=== PATIENT | female | born 1940 | race Caucasian/White ===

== ENCOUNTER → 2017-08-04 | Outpatient (CLI) | payer MEDICARE ==
[~2017-08-04] MED LIST: BENZ.5 PO; HALO1 PO; LISI10 PO; THYR60 PO
[2017-08-04 15:33] LABS: Source, Urine Clean Catch
[2017-08-04 17:39] LABS: Bilirubin, Urine Neg (Neg); Blood, Urine 1+ (Neg); Glucose Qualitative, Urine Neg (Neg); Ketones, Urine Neg (Neg); Leukocyte Esterase, Urine 2+ (Neg); Nitrite, Urine Neg (Neg); Protein, Urine Neg (Neg); Urobilinogen, Urine NORM (Normal)
[2017-08-04 17:49] LABS: Appearance, Urine Clear (Clear); Color, Urine Yellow (P-Yellow)
[2017-08-04 17:50] LABS: Red Blood Cells, Urine 0-2 /hpf (0-2); Squamous Epithelial Cells Not Seen /hpf (Few)
[2017-08-04 17:51] LABS: Bacteria Few /hpf
== END | disposition home or self-care (01) ==
LOC: LAB SHORT 15:00 → LAB 15:00 → LAB FUT 07-28 11:25
PROVIDERS: Obstetrics & Gynecology Female Pelvic Medicine and Reconstructive Surgery
DX: N39.0 Urinary tract infection, site not specified (principal)
CPT/HCPCS: 81001; 87086

== ENCOUNTER → 2018-04-09 | Outpatient (CLI) | payer MEDICARE ==
[2018-04-09 10:14] LABS: BASOPHILS ABSOLUTE AUTO 0.02 K/mm3 (0.00-0.23); BASOPHILS PERCENT AUTO 0 % (0-2); EOSINOPHILS ABSOLUTE AUTO 0.02 K/mm3 (0.00-0.68); EOSINOPHILS PERCENT AUTO 0 % (0-6); Hematocrit 40.5 % (33.0-51.0); Hemoglobin 14.3 g/dL (11.5-16.0); IMMATURE GRAN ABSOLUTE AUTO 0.04 K/mm3 (0.00-0.10); IMMATURE GRAN PERCENT AUTO 1 % (0-1); LYMPHOCYTES ABSOLUTE AUTO 0.73 K/mm3 (0.84-5.20); LYMPHOCYTES PERCENT AUTO 9 % (21-46); MONOCYTES ABSOLUTE AUTO 0.57 K/mm3 (0.16-1.47); MONOCYTES PERCENT AUTO 7 % (4-13); Mean Corpuscular HGB 32.1 pg (26.0-34.0); Mean Corpuscular HGB Conc 35.3 g/dL (31.5-36.5); Mean Corpuscular Volume 91 fL (80-100); Mean Platelet Volume 9.3 fL (9.1-12.4); NEUTROPHILS ABSOLUTE AUTO 6.88 K/mm3 (1.96-9.15); NEUTROPHILS PERCENT AUTO 83 % (41-73); Platelet Count 214 K/mm3 (150-400); RDW Coefficient Variation 13.1 % (11.7-14.2); Red Blood Cell Count 4.46 M/mm3 (3.80-5.20); White Blood Cell Count 8.26 K/mm3 (4.00-11.30)
[2018-04-09 10:31] LABS: Alanine Aminotransfer (ALT/SGP 29 U/L (12-78); Albumin, Blood 4.3 g/dL (3.4-5.0); Albumin/Globulin Ratio 1.3 (0.8-1.8); Alk Phos 87 U/L (40-126); Anion Gap 6 mmol/L (6-16); Aspartate Aminotrans (AST/SGOT 22 U/L (12-37); Bilirubin, Total 0.8 mg/dL (0.1-1.0); Blood Urea Nitrogen 18 mg/dL (8-24); CO2, Blood 27 mmol/L (21-32); Chloride, Blood 96 mmol/L (98-108); Creatinine, Blood 0.72 mg/dL (0.40-1.00); Globulin, Blood 3.3 g/dL (2.2-4.0); Glomerular Filtration Rate >60 (60-); Glucose, Blood 79 mg/dL (70-99); Potassium, Blood 4.8 mmol/L (3.5-5.5); Sodium, Blood 129 mmol/L (136-145); Thyroid Stimulating Hormone 3.026 uIU/mL (0.360-4.800); Total Protein, Blood 7.6 g/dL (6.4-8.2)
[2018-04-09 10:34] LABS: Troponin I <0.017 ng/mL (0.000-0.040)
== END | disposition home or self-care (01) ==
LOC: LAB EV 10:02 → LAB SHORT 10:02
PROVIDERS: Physician Assistant
DX: R53.83 Other fatigue (principal); R55 Syncope and collapse
CPT/HCPCS: 80053; 84443; 84484; 85025

== ENCOUNTER → 2018-07-08 | Outpatient (CLI) | payer MEDICARE | END | disposition home or self-care (01) | LOC: LAB SHORT 13:47 → LAB EV 13:47 | DX: N39.0 Urinary tract infection, site not specified (principal) | CPT/HCPCS: 87077; 87086; 87186 ==

== ENCOUNTER → 2018-07-19 | Outpatient (CLI) | payer MEDICARE | END | disposition home or self-care (01) | LOC: LAB SHORT 12:46 → LAB 12:46 | DX: N39.0 Urinary tract infection, site not specified (principal) | CPT/HCPCS: 87086; 87147 ==

== ENCOUNTER → 2018-09-12 | Outpatient (CLI) | payer MEDICARE | END | disposition home or self-care (01) | LOC: LAB SHORT 08:27 → PLD 08:27 | DX: D22.62 Melanocytic nevi of left upper limb, including shoulder (principal) | CPT/HCPCS: 88305 ==

== ENCOUNTER → 2018-12-14 | Outpatient (CLI) | payer MEDICARE | END | disposition home or self-care (01) | LOC: LAB SHORT 16:52 → LAB 16:52 | DX: N39.0 Urinary tract infection, site not specified (principal) | CPT/HCPCS: 87077; 87086; 87186 ==

== ENCOUNTER → 2019-01-01 | Outpatient (CLI) | payer MEDICARE ==
[~2019-01-01] MED LIST changes: +ALOCANE EMERGEN75 ML TOP; +Percocet 5-3251 EACH PO
[2019-01-01 15:16] LABS: Appearance, Urine Clear (Clear); Bilirubin, Urine Neg (Neg); Blood, Urine Neg (Neg); Color, Urine Yellow (P-Yellow); Glucose Qualitative, Urine Neg (Neg); Ketones, Urine Neg (Neg); Leukocyte Esterase, Urine Neg (Neg); Nitrite, Urine Neg (Neg); Protein, Urine Neg (Neg); Urobilinogen, Urine NORM (Normal)
== END | disposition home or self-care (01) ==
LOC: LAB 13:54 → LAB SHORT 13:54
PROVIDERS: Nurse Practitioner Family
DX: N39.0 Urinary tract infection, site not specified (principal)
CPT/HCPCS: 81003

== ENCOUNTER 2019-01-26 20:11 | Emergency (ER) | payer MEDICARE ==
[~2019-01-26] VITALS: Ht 165.1 cm; Wt 70.3 kg
[~2019-01-26 20:11] MED LIST changes: -ALOCANE EMERGEN75 ML TOP; -Percocet 5-3251 EACH PO
[2019-01-26] MEDS ORDERED: ALOCANE EMERGEN75 ML TOP (21:24)
[2019-01-26] MEDS ORDERED: Percocet 5-3251 EACH PO (21:25)
== END 2019-01-26 21:36 | disposition home or self-care (01) ==
LOC: ER 20:11
DX: T21.12XA Burn of first degree of abdominal wall, initial encounter (principal); T24.119A Burn of first degree of unspecified thigh, initial encounter; T31.0 Burns involving less than 10% of body surface; X10.0XXA Contact with hot drinks, initial encounter; Z79.899 Other long term (current) drug therapy; I10 Essential (primary) hypertension; E03.9 Hypothyroidism, unspecified
CPT/HCPCS: 16000; 99283-25; A9270

== ENCOUNTER → 2019-02-03 | Outpatient (CLI) | payer MEDICARE ==
[~2019-02-03] MED LIST changes: +ALOCANE EMERGEN75 ML TOP; +Percocet 5-3251 EACH PO
== END | disposition home or self-care (01) ==
LOC: LAB SHORT 13:37 → LAB EV 13:37
DX: N39.0 Urinary tract infection, site not specified (principal)
CPT/HCPCS: 87077; 87086; 87186

== ENCOUNTER → 2019-11-01 | Outpatient (CLI) | payer MEDICARE ==
[2019-11-01 14:44] LABS: Source, Urine Clean Catch
[2019-11-01 17:09] LABS: Bilirubin, Urine Neg (Neg); Blood, Urine 2+ (Neg); Glucose Qualitative, Urine Neg (Neg); Ketones, Urine Neg (Neg); Leukocyte Esterase, Urine 2+ (Neg); Nitrite, Urine Neg (Neg); Protein, Urine 1+ (Neg); Specific Gravity, Urine 1.015 (1.003-1.022); Urobilinogen, Urine NORM (Normal)
[2019-11-01 17:18] LABS: Appearance, Urine Hazy (Clear); Color, Urine Yellow (P-Yellow)
[2019-11-01 17:21] LABS: White Blood Cells, Urine TNTC /hpf (0-5)
[2019-11-01 17:22] LABS: Bacteria Few /hpf; Squamous Epithelial Cells Few /hpf (Few); Transitional Epithelial Cells Rare /hpf (0-Rare)
== END | disposition home or self-care (01) ==
LOC: LAB 14:44 → LAB SHORT 14:44
PROVIDERS: Nurse Practitioner Family
DX: R30.9 Painful micturition, unspecified (principal)
CPT/HCPCS: 81001; 87086

== ENCOUNTER → 2020-05-29 | Outpatient (CLI) | payer MEDICARE | END | disposition home or self-care (01) | LOC: LAB EV 13:41 → LAB SHORT 13:41 | DX: R30.0 Dysuria (principal) | CPT/HCPCS: 87077; 87086; 87186 ==

== ENCOUNTER → 2021-01-17 | Outpatient (CLI) | payer MEDICARE | END | disposition home or self-care (01) | LOC: LAB SHORT 13:49 → LAB 13:49 | DX: N39.0 Urinary tract infection, site not specified (principal) | CPT/HCPCS: 87086 ==

== ENCOUNTER → 2021-02-11 | Outpatient (CLI) | payer MEDICARE | LOC: LAB SHORT 11:10 → LAB 11:10 | DX: R30.0 Dysuria (principal) | CPT/HCPCS: 87086 ==

== ENCOUNTER → 2021-08-12 | Outpatient (CLI) | payer MEDICARE | END | disposition home or self-care (01) | LOC: LAB SHORT 14:32 → LAB 14:32 | DX: N39.0 Urinary tract infection, site not specified (principal) | CPT/HCPCS: 87086 ==

== ENCOUNTER → 2022-01-12 | Outpatient (CLI) | payer MEDICARE | LOC: LAB 12:48 → LAB SHORT 12:48 | DX: N39.0 Urinary tract infection, site not specified (principal) | CPT/HCPCS: 87077; 87086; 87186 ==

== ENCOUNTER → 2022-03-03 | Outpatient (CLI) | payer MEDICARE | END | disposition home or self-care (01) | LOC: LAB SHORT 11:30 → LAB 11:30 | DX: N39.0 Urinary tract infection, site not specified (principal) | CPT/HCPCS: 87077; 87086; 87186 ==

== ENCOUNTER → 2022-03-18 | Outpatient (CLI) | payer MEDICARE ==
[2022-03-18 10:50] LABS: Source, Urine Clean Catch
[2022-03-18 12:52] LABS: Bilirubin, Urine Neg (Neg); Blood, Urine 1+ (Neg); Glucose Qualitative, Urine Neg (Neg); Ketones, Urine Neg (Neg); Leukocyte Esterase, Urine 2+ (Neg); Nitrite, Urine Neg (Neg); Protein, Urine 1+ (Neg); Urobilinogen, Urine NORM (Normal)
[2022-03-18 13:20] LABS: Appearance, Urine Hazy (Clear); Color, Urine Yellow (P-Yellow)
[2022-03-18 13:23] LABS: Red Blood Cells, Urine 0-2 /hpf (0-2); White Blood Cells, Urine 25-50 /hpf (0-5)
[2022-03-18 13:24] LABS: Bacteria Few /hpf; Squamous Epithelial Cells Rare /hpf (Few)
== END | disposition home or self-care (01) ==
LOC: LAB 10:49 → LAB SHORT 10:49
PROVIDERS: Nurse Practitioner Family
DX: R30.9 Painful micturition, unspecified (principal)
CPT/HCPCS: 81001; 87077; 87086; 87186

== ENCOUNTER → 2022-12-14 | Outpatient (CLI) | payer MEDICARE | END | disposition home or self-care (01) | LOC: LAB 13:27 → LAB SHORT 13:27 | DX: N39.0 Urinary tract infection, site not specified (principal) | CPT/HCPCS: 87077; 87086; 87186 ==

== ENCOUNTER → 2023-02-17 | Outpatient (CLI) | payer MEDICARE | LOC: LAB 15:23 → LAB SHORT 15:23 | DX: N39.0 Urinary tract infection, site not specified (principal) | CPT/HCPCS: 87077; 87086; 87186 ==

== ENCOUNTER → 2023-04-19 | Outpatient (CLI) | payer MEDICARE | LOC: LAB SHORT 17:11 → LAB 17:11 | DX: N30.00 Acute cystitis without hematuria (principal) | CPT/HCPCS: 87077; 87086; 87186 ==

== ENCOUNTER 2025-04-15 18:36 | Inpatient (IN) | payer MEDICARE ==
[~2025-04-15] VITALS: Ht 170.2 cm; Wt 71.5 kg
[2025-04-15] MEDS ORDERED: METOPROLOL SUCC25 MG PO (18:48)
[2025-04-15] MEDS ORDERED: ELIQUIS5 M2 PO (18:48)
[2025-04-15] MEDS ORDERED: AMLO5 PO (18:49)
[2025-04-15] MEDS ORDERED: BENAZEPRIL HCL40 M1 PO (18:49)
[2025-04-15] MEDS ORDERED: HYDCHL12.5 PO (19:11)
[2025-04-15] MEDS ORDERED: SPIR25 PO (19:12)
[2025-04-15] MEDS ORDERED: VALACYCLOVIR1000 MG (19:12)
[2025-04-15] MEDS ORDERED: EUTHYROX88 MCG PO (19:12)
[2025-04-15] MEDS ORDERED: Seroquel Xr50 MG PO (19:13)
[2025-04-15] MEDS ORDERED: ZYRTEC10 M2 PO (19:13)
[2025-04-15 19:14] LABS: Source, Urine Straight Cath
[2025-04-15] MEDS ORDERED: Vitamin D1000 UNI1 PO (19:14)
[2025-04-15 19:18] LABS: BASOPHILS ABSOLUTE AUTO 0.01 K/mm3 (0.00-0.23); BASOPHILS PERCENT AUTO 0 % (0-2); EOSINOPHILS ABSOLUTE AUTO 0.00 K/mm3 (0.00-0.68); EOSINOPHILS PERCENT AUTO 0 % (0-6); Hematocrit 29.5 % (33.0-51.0); Hemoglobin 10.9 g/dL (11.5-16.0); IMMATURE GRAN ABSOLUTE AUTO 0.03 K/mm3 (0.00-0.10); IMMATURE GRAN PERCENT AUTO 0 % (0-1); LYMPHOCYTES ABSOLUTE AUTO 0.19 K/mm3 (0.84-5.20); LYMPHOCYTES PERCENT AUTO 2 % (21-46); MONOCYTES ABSOLUTE AUTO 0.72 K/mm3 (0.16-1.47); MONOCYTES PERCENT AUTO 8 % (4-13); Mean Corpuscular HGB Conc 36.9 g/dL (31.5-36.5); Mean Corpuscular Volume 86 fL (80-100); NEUTROPHILS ABSOLUTE AUTO 8.16 K/mm3 (1.96-9.15); NEUTROPHILS PERCENT AUTO 90 % (41-73); NRBC ABSOLUTE 0.00 K/mm3 (0.00-0.02); NRBC Auto 0.0 /100 WBC (0.0-0.2); Platelet Count 135 K/mm3 (150-400); RDW Coefficient Variation 13.0 % (11.7-14.2); RDW Standard Deviation 41.0 fL (35.1-46.3)
[2025-04-15 19:21] LABS: Bilirubin, Urine Neg (Neg); Color, Urine Yellow (P-Yellow); Glucose Qualitative, Urine Neg (Neg); Ketones, Urine Neg (Neg); Leukocyte Esterase, Urine 3+ (Neg); Protein, Urine 3+ (Neg); Specific Gravity, Urine 1.015 (1.003-1.022); Urobilinogen, Urine NORM (Normal)
[2025-04-15 19:29] LABS: White Blood Cells, Urine TNTC /hpf (0-5)
[2025-04-15 19:34] LABS: U Amphetamine Screen Not Detected; U Barbiturate Screen Not Detected; U Benzodiazapine Screen Not Detected; U Buprenorphine Screen Not Detected; U Cannabinoids Screen Not Detected; U Cocaine Screen Not Detected; U Methadone Screen Not Detected; U Methamphetamine Screen Not Detected; U Opiates Screen Not Detected; U Oxycodone Screen Not Detected; U Phencyclidine Screen Not Detected
[2025-04-15] MEDS ORDERED: CefTRIAXone Sodium 1,000 MG in NS 100 ML IV ONE (19:35)
[2025-04-15 19:58] LABS: Alanine Aminotransfer (ALT/SGP 46 U/L (12-78); Albumin, Blood 2.8 g/dL (3.4-5.0); Albumin/Globulin Ratio 0.7 (0.8-1.8); Anion Gap 13 mmol/L (3-11); Aspartate Aminotrans (AST/SGOT 57 U/L (12-37); Bilirubin, Total 1.0 mg/dL (0.1-1.0); Blood Urea Nitrogen 64 mg/dL (8-24); CO2, Blood 22 mmol/L (21-32); Calcium, Blood 10.8 mg/dL (8.5-10.1); Chloride, Blood 97 mmol/L (98-108); Creatinine, Blood 1.54 mg/dL (0.40-1.00); Ethanol (Alcohol), Blood, Med <3 mg/dL; Globulin, Blood 3.8 g/dL (2.2-4.0); Glucose, Blood 94 mg/dL (70-99); Potassium, Blood 3.1 mmol/L (3.5-5.5); Sodium, Blood 129 mmol/L (136-145); Total Protein, Blood 6.6 g/dL (6.4-8.2)
[2025-04-15 21:56] LABS: IMMATURE RETIC FRACTION 12.20 % (2.3-16.0); RETIC HGB EQUIVALENT 27.20 pg (28.20-36.60); RETICULOCYTE ABSOLUTE 0.0671 M/mm3 (0.0200-0.1100); RETICULOCYTE COUNT PERCENT 1.94 % (0.50-2.50)
[2025-04-15] MEDS ORDERED: NS 1,000 ML IV SCH (22:00)
[2025-04-15 22:41] LABS: Ferritin, Serum 439 ng/mL (8-252); Magnesium, Blood 2.4 mg/dL (1.6-2.4); Total Iron Binding Capacity 231 ug/dL (250-450)
[2025-04-15 23:03] VITALS: BP 152/76
[2025-04-16 03:11] VITALS: BP 141/60
--- NOTE | 2025-04-16 04:21 | NUR ---
PT ADMITTED FOR TOXIC METABOLIC ENCEPHALOPATHY. PATIENT ALERT AND ORIENTD TO SELF AND CONFUSED. WHEN PATIENT WAS ASKED WAS MONTH IT WAS SHE REPLIED "19". PATIENT DOES NOT KNOW YEAR OR THE SITUATION. PATIENT IS ON ROOM AIR SATING WELL-NO SOB. PATIENT ON TELE- A FLUTTER WITH PACER. PATIENT IS ON NS AT 150 ML/H. PATIENT IS INCONTINENT OF BLADDER- BRIEF IN PLACE AND CHANGED NEEDED. PATIENT IS ABLE TO TURN SELF IN BED. MED REC/ADMISSION QUESTIONS COULD NOT BE COMPLETED DUE TO PATIENTS COGNITION. BED IS IN LOW POSITION WITH WHEELS LOCKED. BED ALAR ON, CALL LIGHT WITHIN REACH.
[2025-04-16 04:36] LABS: BASOPHILS ABSOLUTE AUTO 0.02 K/mm3 (0.00-0.23); BASOPHILS PERCENT AUTO 0 % (0-2); EOSINOPHILS ABSOLUTE AUTO 0.00 K/mm3 (0.00-0.68); EOSINOPHILS PERCENT AUTO 0 % (0-6); Hematocrit 29.3 % (33.0-51.0); Hemoglobin 10.4 g/dL (11.5-16.0); IMMATURE GRAN ABSOLUTE AUTO 0.04 K/mm3 (0.00-0.10); IMMATURE GRAN PERCENT AUTO 1 % (0-1); LYMPHOCYTES ABSOLUTE AUTO 0.18 K/mm3 (0.84-5.20); LYMPHOCYTES PERCENT AUTO 2 % (21-46); MONOCYTES ABSOLUTE AUTO 0.62 K/mm3 (0.16-1.47); MONOCYTES PERCENT AUTO 8 % (4-13); Mean Corpuscular HGB Conc 35.5 g/dL (31.5-36.5); Mean Corpuscular Volume 88 fL (80-100); NEUTROPHILS ABSOLUTE AUTO 7.04 K/mm3 (1.96-9.15); NEUTROPHILS PERCENT AUTO 89 % (41-73); NRBC ABSOLUTE 0.00 K/mm3 (0.00-0.02); NRBC Auto 0.0 /100 WBC (0.0-0.2); Platelet Count 135 K/mm3 (150-400); RDW Coefficient Variation 12.9 % (11.7-14.2); RDW Standard Deviation 41.7 fL (35.1-46.3)
[2025-04-16 05:14] LABS: Alanine Aminotransfer (ALT/SGP 40.0 U/L (12-78); Albumin, Blood 2.5 g/dL (3.4-5.0); Albumin/Globulin Ratio 0.7 (0.8-1.8); Anion Gap 10.0 mmol/L (3-11); Aspartate Aminotrans (AST/SGOT 40.0 U/L (12-37); Bilirubin, Total 0.8 mg/dL (0.1-1.0); Blood Urea Nitrogen 54.0 mg/dL (8-24); CO2, Blood 23.0 mmol/L (21-32); Calcium, Blood 10.2 mg/dL (8.5-10.1); Chloride, Blood 104.0 mmol/L (98-108); Creatinine, Blood 1.28 mg/dL (0.40-1.00); Globulin, Blood 3.5 g/dL (2.2-4.0); Glucose, Blood 91.0 mg/dL (70-99); Potassium, Blood 3.1 mmol/L (3.5-5.5); Sodium, Blood 134.0 mmol/L (136-145); Total Protein, Blood 6.0 g/dL (6.4-8.2)
[2025-04-16 07:43] VITALS: BP 134/80
[2025-04-16] MEDS ORDERED: Lactobacil 2-S.Thermo-Bifido 1 1 Cap PO SCH (09:00)
[2025-04-16] MEDS ORDERED: Potassium Chl 20MEQ/Water100ML 100 ML IV STA (10:11)
[2025-04-16] MEDS ORDERED: NS 250 ML IV PRN (10:25)
[2025-04-16 10:52] VITALS: BP 152/70
[2025-04-16] MEDS ORDERED: FLUT.05NI (11:00)
[2025-04-16] MEDS ORDERED: NS 1,000 ML IV SCH (11:45)
[2025-04-16 15:19] VITALS: BP 152/62
--- NOTE | 2025-04-16 15:38 | NUR ---
SPOKE TO PATIENTS SON NANCY HER OLDEST THIS MORNING. HE IS HER POA, AND STATED PATIENT HAD PREVIOUSLY BEEN A DNR, PALLIATIVE CARE CONSULTED TO HELP IN ADVANCE CARE PLANNING. NANCY WAS GIVEN OUR UNIT CLERKS EMAIL TO SEND PAPERWORK FOR CHART. NANYC ALSO GAVE PERMISSION TO NURSING STAFF TO UPDATE KRISTYNER IN LAW ELYSSA HER NAME AND NUMBER ARE ON THE BOARD AND IN CHART AND SHE WILL KEEP THE FAMILY UPDATED ON PLAN OF CARE. DAUGHTER IN LAW ALSO WANTED TO CLARIFY THAT PT HAD A SUDDEN CHANGE IN MENTATION, SAME DAY CONFUSION NOTICED. PT HAD BEEN COMPLETELY WITH IT THE DAY PRIOR TO HER NEIGHBOR GOING TO CHECK ON HER PER HER SONS REQUEST HE COULDNT GET AHOLD OF HER. PT HAS FOUR SONS, NANCY IS POA BUT ELYSSA WILL BE PERSON TO NOTIFY PER NANCY'S REQUEST.
[2025-04-16] MEDS ORDERED: Vitamin B Comple1 EA PO (16:13)
--- NOTE | 2025-04-16 17:54 | NUR ---
WAS NOTIFIED BY PROFESSIONAL SECURITY OFFICER BREANA THAT PATIENT CONVERTED FROM SINUS RHYTHM A-PACED TO A-FLUTTER AND HAS BEEN SUSTAINING IN THE 80'S SINCE 1707. PRIOR HAD A COUPLE RUNS OF F-FLUTTER LASTING A COUPLE SECONDS BUT NOT SUSTAINING. NOTIFIED [facility]IA EUGENIA GREEN THIS EVENING DR. CAMPBELL DID NOT ANSWER. ORDERED TO RESTART HOME ELIQUIS.
--- NOTE | 2025-04-16 18:03 | NUR ---
SUMMARY PT A/OX1 THIS AM RESPONDING WITH PRESSURED SPEECH IN ONE WORD PHRASES. CALLED FRIEND/NEIGHBOR JORGE LUIS WHO GAVE ME HER SON NANCY'S PHONE NUMBER. NUMBERS ARE UP ON THE BOARD IN ROOM AND IN CHART. PALLITAIVE CARE CONSULTED TO HELP WITH ADVANCE CARE PLANNING. HER SON NANCY CALLED TO GET AN UPDATE I COULDNT GET THROUGH TO NICK WHO IS ON FACESHEET. UPDATE GIVEN TO NANCY WHO CALLED BACK REQUESTING IF WE COULD UPDATE ELYSSA WHO IS DAUGHTER IN LAW WHO IS TO SON SENTHIL. PER ELYSSA DIAZT IS POA, EMAIL GIVEN TO NANCY TO SEND PAPERWORK OF POA. ELYSSA WAS UPDATED AND WILL KEEP REST OF FAMILY UPDATED. NANCY STATED HE FEELS MORE COMFORTABLE SINCE ELYSSA IS A NURSE AND HER SENTHIL IS A RESP THERAPIST AND UNDERSTAND THE "MEDICAL LINGO". PT CONTINUES TO BE CONFUSED THIS EVENING, STILL A/OX1 BUT IS STARTINIG TO CARRY ON A CONVERSATION WITH SENTENCES. NO ACUTE NEURO SYMPTOM CHANGES THIS SHIFT. Q8 NEURO CHECKS. IV FLUIDS INFUSING AT 75 ML/HR. PT/OT DEFERRED UNTIL TOMORROW DUE TO MENTAL STATUS. ALL EXTREMITIES EQUAL IN STREGTH, PT NOT ATTEMPTING OOB BUT BED ALARM ON, NONSKID SOCKS ON. FALL PRECAUTIONS IN PLACE.
--- NOTE | 2025-04-16 19:06 | NUR ---
PALLIATIVE CARE VISIT: CONSULT RECEIVED FOR ADVANCED CARE PLANNING AND AD/POLST. REVIEWED MEDICAL RECORD, SPOKE TO PRIMARY RN PRIOR TO VISIT. AD ON FILE BUT WON'T PULL UP IN WINDOW. POLST ON FILE THROUGH POLST REGISTRY STATING DNR, LIMITED. PRIMARY RN PROVIDED OTHER CHILDRENS NAME AND CONTACT INFO. GLENN CRUZ REPORTED POA- [phone] SON [phone] MET WITH PT IN ROOM. PT IS CONFUSED, DID NOT KNOW HER OR WHERE SHE WAS AT. SHE WAS ABLE TO STATE HER NAME AND MONTH OF . PT UNABLE TO PARTICIPATE IN MEANINGFUL CONVERSATION. CALLED GLENN CRUZ, WHO IS REPORTEDLY PT POA. UPDATED HIM ON PT. DISCUSSED POLST FOUND ON FILE, EDUCATED ON CPR VS DNR MEASURES, RISKS VS BENEFITS. NANCY WANTS TO KEEP CODE STATUS A FULL CODE UNTIL HE HAS TIME TO TALK TO BROTHER SENTHIL AND PENNY BERGERON. PER NANCY GLENN ROMERO LISTED PERSON TO NOTIFY IS BIPOLAR AND DOES NOT TAKE HIS MEDICATIONS SO HE IS NOT A GOOD CONTACT AT THIS TIME. ATTEMPTED TO CALL [employer] TO SEE IF ADVANCE DIRECTIVE OR POA ON FILE. WAS NOT ABLE TO GET IN TOUCH IT WAS AFTER 5 PM.
[2025-04-16 19:53] VITALS: BP 143/67
[2025-04-16] MEDS ORDERED: CefTRIAXone Sodium 1,000 MG in NS 100 ML IV SCH (21:00)
[2025-04-16] MEDS ORDERED: CefTRIAXone Sodium 2,000 MG in NS 100 ML IV SCH (21:00)
[2025-04-16 23:22] VITALS: BP 143/59
--- NOTE | 2025-04-17 03:37 | NUR ---
SHIFT SUMMARY- A&Ox1. PLEASANT AND COOPERATIVE WITH CARE. DOES NOT USE THE CALL LIGHT. BED ALARMS ON DUE TO FALL RISK. VSS. ON TELEMETRY AFLUTTER 83. BREATHING EVEN AND UNLABORED ON INCONTINENT OF BLADDER DUE TO CURRENT ILLNESS. PATIENT HAS NOT HAD A BM WHILE ADMITTED. PATIENT IS ON BEDREST BUT WAS ABLE TO COOPERATE TO USE THE BEDSIDE COMMODE WITH 1-2 PERSON ASSIST. MEDS WHOLE IN APPLESAUCE. BED IN LOWEST POSITION, CALL LIGHT WITHIN REACH, ALL NEEDS MET. REPORT TO ONCOMING NURSE.
[2025-04-17 04:20] VITALS: BP 148/73
[2025-04-17 04:46] LABS: BASOPHILS ABSOLUTE AUTO 0.02 K/mm3 (0.00-0.23); BASOPHILS PERCENT AUTO 0 % (0-2); EOSINOPHILS ABSOLUTE AUTO 0.01 K/mm3 (0.00-0.68); EOSINOPHILS PERCENT AUTO 0 % (0-6); Hematocrit 30.3 % (33.0-51.0); Hemoglobin 10.7 g/dL (11.5-16.0); IMMATURE GRAN ABSOLUTE AUTO 0.11 K/mm3 (0.00-0.10); IMMATURE GRAN PERCENT AUTO 1 % (0-1); LYMPHOCYTES ABSOLUTE AUTO 0.39 K/mm3 (0.84-5.20); LYMPHOCYTES PERCENT AUTO 5 % (21-46); MONOCYTES ABSOLUTE AUTO 0.87 K/mm3 (0.16-1.47); MONOCYTES PERCENT AUTO 11 % (4-13); Mean Corpuscular HGB Conc 35.3 g/dL (31.5-36.5); Mean Corpuscular Volume 88 fL (80-100); NEUTROPHILS ABSOLUTE AUTO 6.49 K/mm3 (1.96-9.15); NEUTROPHILS PERCENT AUTO 82 % (41-73); NRBC ABSOLUTE 0.00 K/mm3 (0.00-0.02); NRBC Auto 0.0 /100 WBC (0.0-0.2); Platelet Count 157 K/mm3 (150-400); RDW Coefficient Variation 13.2 % (11.7-14.2); RDW Standard Deviation 42.5 fL (35.1-46.3)
[2025-04-17 05:08] LABS: Alanine Aminotransfer (ALT/SGP 33.0 U/L (12-78); Albumin, Blood 2.2 g/dL (3.4-5.0); Albumin/Globulin Ratio 0.6 (0.8-1.8); Anion Gap 8.0 mmol/L (3-11); Aspartate Aminotrans (AST/SGOT 24.0 U/L (12-37); Bilirubin, Total 0.5 mg/dL (0.1-1.0); Blood Urea Nitrogen 39.0 mg/dL (8-24); CO2, Blood 25.0 mmol/L (21-32); Calcium, Blood 10.2 mg/dL (8.5-10.1); Chloride, Blood 112.0 mmol/L (98-108); Creatinine, Blood 1.0 mg/dL (0.40-1.00); Globulin, Blood 3.7 g/dL (2.2-4.0); Glucose, Blood 122.0 mg/dL (70-99); Potassium, Blood 2.9 mmol/L (3.5-5.5); Sodium, Blood 142.0 mmol/L (136-145); Total Protein, Blood 5.9 g/dL (6.4-8.2)
[2025-04-17 07:29] VITALS: BP 148/65
[2025-04-17] MEDS ORDERED: Potassium Chloride 10 Meq Tablet SA PO SCH (09:00)
[2025-04-17] MEDS ORDERED: Potassium Chl 20MEQ/Water100ML 100 ML IV SCH (11:00)
[2025-04-17 11:26] VITALS: BP 131/78
[2025-04-17 15:17] VITALS: BP 144/70
--- NOTE | 2025-04-17 18:23 | NUR ---
SON CHADD CALLED FOR AN UPDATE, UPDATE GIVEN ON PT CONDITION AND PLAN OF CARE TODAY.
[2025-04-17 19:22] VITALS: BP 140/59
--- NOTE | 2025-04-17 19:44 | NUR ---
SUMMARY PT CONTINUES TO BE CONFUSED, WILL OCASIONALLY BE ALBE TO TELL ME HER NAME OTHER TIMES CANT, APPEARS APHASIC AT TIMES OR SELECTIVE IN HER RESPONSE TO COMMANDS. [facility] SCORE COMPLETED AND DR. CAMPBELL UPDATED, REPEAT CT HEAD COMPLETED. SON SENTHIL AND PENNY BERGERON UPDATED ON PLAN OF CARE AND THEY ARE ANXIOUS, REQUESTING DOC TO CALL FAMILY TOMORROW TO DISCUSS PLAN OF CARE PT MENTATION HAS NOT SHOWN IMPROVEMENT AFTER 24 HOURS. PT HAD POTASSIUM SUPPLEMENTED IV AND PO TODAY. FAIR APPETITE. NO BM THIS SHIFT. INCONTINENT OF URINE. PT/OT UNALBE TO EVALUATE DUE TO MENTATION.
[2025-04-17 23:29] VITALS: BP 160/73
[2025-04-18 03:24] VITALS: BP 157/67
--- NOTE | 2025-04-18 05:13 | NUR ---
SHIFT SUMMARY PT ALERT ORIENTED TO SELF ONLY. SHE WONT TELL YOU HER NAME BUT IF YOU ASK HER IF THATS HER NAME AND SHE SAYS YES. SHES BEEN VERY CONFUSED THIS SHIFT USING LOTS OF WORD SALAD. SHE WILL YELL AND SCREAM OUT WHEN YOU TRY TO CHANGE HER. MOST OF THE THINGS THAT SHES SAYING YOU CANT UNDERSTAND. I SAW ON HER HOME MEDS THAT SHE USED TO TAKE SEROQUEL AT HOME. I WILL PASS ON TO AM SHIFT TO ASK MD IF WE CAN GET THAT MED BACK FOR HER. IT SEEMS THAT SHE IS HAVING VISUAL HALLUCINATIONS AND SHE GETS VERY SCARED. REMAINS ON AFIB AT 79 WITH SOME VPACED BEATS. SHE HAD HER PACER PLACED ABOUT 1 MONTH AGO. SHE IS INC OF URINE AND WEARS BRIEFS. REMAINS ON ROCEPHIN ORDERED FOR A UTI. REMAINS ON NS AT 75. SHES BEEN AWAKE FOR ME THE LAST 2 NIGHTS. LYING IN BED WITH HER CALL LIGHT IN REACH
[2025-04-18 07:28] VITALS: BP 168/68
[2025-04-18 11:28] VITALS: BP 160/70
--- NOTE | 2025-04-18 12:55 | NUR ---
NOTE FRIEND WAS AT BEDSIDE THIS AM, REPORTED PT HAS HX OF NOMAN, WAS WONDERING IF THIS IS PSYCH RELATED, PT LAUGHS AT TIMES. FRIEND IN ROOM REPORTED "PT IS VERY ORIENTED AT HOME." REPORTED TO DR. CAMPBELL. REPORTED "THIS IS NOT PSYCH RELATED, PT IS CONFUSED DUE TO UTI." THIS RN NOTICED PT TAKES SEROQUEL AT NIGHT, THIS RN NOTICED PT NOT TAKING AT HOSPITAL. DR. CAMPBELL ORDERED SEOQUEL.
[2025-04-18 14:35] VITALS: BP 162/74
--- NOTE | 2025-04-18 15:36 | NUR ---
NOTE PHYSICAL THERAPY CANCELLED ORDER DUE TO PT NOT DIRECTABLE, "UNABLE TO WORK W PT." PT AGITATED, HX OF FALLS, TRYING TO GET OUT OF BED, NOT REDIRECTABLE, YELLING AT STAFF, USING NOT APPROPRIATE LANGUAGE. BED ALARM ON. FUNERAL HOME LOCATION MANAGER ANSWERED BED ALARM, REDIRECTING PT, PT NOT DIRECTABLE AND OFFERED BATHROOM. AIRFIELD SERVICES OFFICER HAD JUST CHANGED ATTENDS DUE TO INCONTINENCE. FUNERAL HOME LOCATION MANAGER AND THIS RN ATTEMPTED TO GET PT TO BSC, PT REALLY UNSTABLE ON FEET. PT CONT TO THRASH IN BED, AND FLAILING ARMS AND ATTEMPTING TO PULL LINES. PT GIVEN FIGIT VEST. THIS RN CALLED DR. CAMPBELL TO NOTIFY INCREASE IN AGITATION. DR. CAMPBELL REPORTED "NOT ORDERING SEROQUAL PRN DUE TO PT BEING LETHARGIC ON ADMISSION. GET PT A SITTER." REPORTED TO FUNERAL HOME LOCATION MANAGER PT NEEDS SITTER, FUNERAL HOME LOCATION MANAGER REPORTED TO NURSING SUP AND ASSISTANT GENERAL MANAGER REPORTED USE CAMERA. CAMERA IN ROOM AND FUNERAL HOME LOCATION MANAGER CALLED FOR VIRTUAL CAMERA ACTIVATION, FUNERAL HOME LOCATION MANAGER APPLIED CECILLE DUE TO SAFETY RISK AND PT CONT TO TRY TO GET OUT OF BED AND BEING UNSTABLE AND NOT REDIRECTABLE ON FEET. PT BED IN LOWEST POSITION, VIRTUAL CAMERA INTERVENTION ADDED AND RESTRAINT MANAGEMENT, CALL LIGHT IN REACH. PT CONT TO FLING LEG OVER SIDE RAIL.
--- NOTE | 2025-04-18 17:13 | NUR ---
NOTE ATTEMPTED TO GET VIRTUAL CAMERA TO WORK, ATTEMPTED THROUGH 3 CAMERAS. VIRTUAL INSPECTOR MECHANICAL REPORTED ACCORDING TO RADHA RN THAT "CAN'T COMMUNICATE TO PT, CAN SOUND ALARMS." PT IN CECILLE FOR SAFETY. BED ALARM ON.
--- NOTE | 2025-04-18 17:24 | NUR ---
SHIFT SUMMARY PT TALKS IN SENTENCES BUT TALKS WITH WORD SALAD. HAS DIFFICULTY EXPRESSING WHAT SHE NEEDS. THIS RN ASKED PT HER NAME, PT SAYS OF COURSE THAT IS MY NAME. PT HAS INTERMITTENT LAUGHING OUT AT TIMES AND YELLS OUT AT TIMES. PT HAS VISUAL AND AUDIO HALLUCINATIONS AND VISUAL. PT REPORTS BEING ON A PLANE, WANTS OFF THE PLANE. PT INC OF URINE. ATTENDS IN PLACE. ATTENDS CHANGED PRN. PT ON BEDREST. PT 2 P ASSIST TO BSC. PT NOT REDIRECTABLE AND AGITATED. PT REPORTS "IM GETTING OUT OF THIS FUCKING PLACE." PT HAS CECILLE IN PLACE FOR FALL PRECAUTIONS, RESTAINT MANAGEMENT COMPLETE. PT ON TELE. PT IS VPACED. HX OF RECENT PACEMAKER PLACEMENT. PT HAS CONT FLUIDS INFUSING AT 75ML/HR. PT IN BED, BED IN LOWEST POSITION, CALL LIGHT IN REACH. PT MEDICATED ONCE PO WITH ZYPREXA FOR AGITATION.
[2025-04-18 19:50] VITALS: BP 175/94
[2025-04-18 23:42] VITALS: BP 173/78
[2025-04-19 03:25] VITALS: BP 151/89
[2025-04-19 05:14] LABS: Anion Gap 7.0 mmol/L (3-11); Blood Urea Nitrogen 22.0 mg/dL (8-24); CO2, Blood 27.0 mmol/L (21-32); Calcium, Blood 10.3 mg/dL (8.5-10.1); Chloride, Blood 110.0 mmol/L (98-108); Creatinine, Blood 0.74 mg/dL (0.40-1.00); Glucose, Blood 106.0 mg/dL (70-99); Magnesium, Blood 1.7 mg/dL (1.6-2.4); Potassium, Blood 3.0 mmol/L (3.5-5.5); Sodium, Blood 141.0 mmol/L (136-145)
--- NOTE | 2025-04-19 07:15 | NUR ---
SHIFT SUMMARY ALERT, ORIENTED TO SELF. AGITATED AT TIMES, PT DID NOT APPEAR TO SLEEP. ELEVATED BP, OTHER VSS ON RA. TELE IN PLACE, AFLUTTER. 2P ASSIST TO REPOSITION/TURN IN BED. Q2 CHECK/CHANGES COMPLETED. SAFETY PRECAUTIONS IN PLACE.
[2025-04-19 07:28] VITALS: BP 168/81
--- NOTE | 2025-04-19 08:14 | NUR ---
ASSUMPTION OF CARE: THIS RN ASSUMED CARE OF PATIENT. AWAKE DURING SHIFT CHANGE REPORT. LYING SUPINE IN BED c CECILLE IN PLACE. SEEMED TO BE CONVERSING c SOMEONE ON RIGHT SIDE OF BED, THOUGH NOBODY ELSE WAS IN ROOM. GRANDIOSE AND PARANDOID VISUAL AND AUDITORY HALLUCINATIONS. BREATHING EVEN AND UNLABORED c ROOM AIR. MOST RECENT TELE STRIP IN CHART INTERPRETED AFIB c V-PACED @ 81bpm. BED IN LOWEST POSITION. CALL LIGHT WITHIN REACH. ACUTE NEEDS MET.
--- NOTE | 2025-04-19 10:28 | NUR ---
SPOKE c PATIENT FAMILY MEMBER/FRIENDS WHO STATES PATIENT HAD A "PSYCHOTIC EPISODE" LIKE THIS ABOUT FIFTEEN YEARS AGO THAT REQUIRED HOSPITALIZATION. STATED IT STARTED WITH A STRESSFUL SITUATION AND ESCALATED TO INSOMNIA AND EVENTUALLY HOSPITALIZATION WITH A UTI. FAMILY REQUESTING A PSYCH CONSULT.
[2025-04-19 11:57] VITALS: BP 163/115
[2025-04-19] MEDS ORDERED: Haloperidol Lactate Inj. 5 MG/ML Injection IV PRN (13:35)
[2025-04-19 15:28] VITALS: BP 169/71
[2025-04-19] MEDS ORDERED: Mag Sulfate 1 GM/D5% 100ML 100 ML IV STA (15:54)
[2025-04-19] MEDS ORDERED: Potassium Chl 20MEQ/Water100ML 100 ML IV STA (16:05)
[2025-04-19 20:48] VITALS: BP 162/101
--- NOTE | 2025-04-19 20:53 | NUR ---
END OF SHIFT SUMMARY: ALERT. ORIENTED TO SELF, SOMETIMES, BUT OCCASIONALLY NOT. GRANDIOSE AND PARANOID VISUAL AND AUDITORY HALLUCINATIONS T/O ENTIRETY OF SHIFT, OFTEN NOTED TO BE CONVERSING WITH PEOPLE SHE BELIEVES TO BE IN ROOM. INSULTING STAFF, TELLING THEM THEY ARE STUPID. REPEATEDLY STATING THE REASON THINGS ARE HAPPENING IS BECAUSE SHE THE PERSON, BUT IS UNABLE TO SAY WHO THE PERSON IS. FIXATED ON BEING THE SMARTEST PERSON INT HE WORLD. THREW BEVERAGE AT PROVIDER TODAY. CONTINUES TO BE IN CECILLE VEST SECONDARY TO REPEATEDLY ATTEMPTING TO GET OUT OF BED AND ENDANGERING SELF. DOES NOT UTILIZE CALL LIGHT. INCONTINENT OF BOWEL AND BLADDER AT THIS TIME. REFUSED PO MEDS FOR THIS RN. SON ATTEMPTED TO ADMINISTER LATER, WHICH SHE ALSO REFUSED. TELE STRIP IN CHART REVIEWED AND INTERPRETED A-FIB, V-PACED @ 81bpm. FAMILY WONDERING IF MRI CAN BE DONE TO R/O STROKE; UNABLE TO OBTAIN RECORDS FROM RECENT PACEMAKER PLACEMENT D/T NOT KNOWING WHERE DONE. DR. CAMPBELL MAY BE ABLE TO REVIEW IN [place]. FAMILY FRIEND CONFIRMS PATIENT Hx PSYCH ISSUES, THOUGH SON DENIES THIS. CHART REVIEW SHOWS HAVING BEEN IN ED FOR HYPERMANIA ~10-15 YEARS AGO. FRIENDS STATE IT STARTED WITH EPISODE SUCH THIS: BEGAN WITH STRESS, INSOMNIA AND UTI. BREATHING EVEN AND UNLABORED c RA. TOLERATING PO INTAKE, BUT IS PARANOID AND APPREHENSIVE TO TAKE ANYTHING FROM ANYONE OTHER THAN HER SON. PSYCH CONSULT PLACED; DELEGATION REQUEST TO CHARGE TO SUBMIT. K+ AND MAG REPLACED IV. PRN IV HALDOL 2.5MG ADDED Q6H. UNABLE TO PARTICIPATE IN CARE TODAY SECONDARY TO AMS. BED IN LOWEST POSITION, CALL LIGHT WITHIN REACH, ALL NEEDS MET. REPORT TO ONCOMING NURSE.
[2025-04-20 00:23] VITALS: BP 164/95
[2025-04-20 04:22] VITALS: BP 157/66
--- NOTE | 2025-04-20 04:36 | NUR ---
PATIENT HAS NOT SLEPT AT ALL THIS ENTIRE SHIFT HOWEVER SHE HAS BECOME LESS AGITATED. INITIATED A HOT WATER PAD THING FOR HER NECK PAIN SHE TOLD ME SHE WANTED TO TRY SOMETHING BESIDES MEDICATION. PATIENT ATE AN UNCRUSTABLE, A PUDDING AND SOME MILK. PATIENT DOES CONTINUE TO ASK TO GET OUT OF BED BUT HAS BEEN MORE REDIRECTABLE TONIGHT. VITALS HAVE BEEN STABLE AND NO ACUTE EVENTS NOTED. BED IN LOW POSITION, BED ALARM INITIATED, POSESSIONS AND CALL LIGHT WITHIN REACH.
[2025-04-20 07:19] VITALS: BP 178/70
[2025-04-20 11:15] VITALS: BP 147/81
[2025-04-20] MEDS ORDERED: NS 1,000 ML IV SCH (11:25)
[2025-04-20 15:19] VITALS: BP 151/79
[2025-04-20 16:51] LABS: Anion Gap 8.0 mmol/L (3-11); Blood Urea Nitrogen 25.0 mg/dL (8-24); CO2, Blood 27.0 mmol/L (21-32); Calcium, Blood 10.4 mg/dL (8.5-10.1); Chloride, Blood 112.0 mmol/L (98-108); Creatinine, Blood 0.82 mg/dL (0.40-1.00); Glucose, Blood 105.0 mg/dL (70-99); Potassium, Blood 3.7 mmol/L (3.5-5.5); Sodium, Blood 143.0 mmol/L (136-145)
[2025-04-20 19:46] VITALS: BP 171/92
--- NOTE | 2025-04-20 20:09 | NUR ---
PT CONTINUED WITH CECILLE D/T LINE PULLING, THROWING THINGS, THREATENING STAFF, TRYING TO GET OOB. FAMILY EDUCATED. PT CONFUSED AND HALLUCINATING. ABLE TO FORM SENTENCES BUT SOME APHASIA REMAINS. CALL LIGHT IN REACH, BED IN LOW LOCKED POSITION.
[2025-04-21] VITALS (7 sets, daily range): BP systolic 137–177; BP diastolic 75–87
[2025-04-21 05:32] LABS: Anion Gap 7.0 mmol/L (3-11); Blood Urea Nitrogen 25.0 mg/dL (8-24); CO2, Blood 28.0 mmol/L (21-32); Calcium, Blood 11.1 mg/dL (8.5-10.1); Chloride, Blood 112.0 mmol/L (98-108); Creatinine, Blood 0.8 mg/dL (0.40-1.00); Glucose, Blood 108.0 mg/dL (70-99); Potassium, Blood 4.1 mmol/L (3.5-5.5); Sodium, Blood 143.0 mmol/L (136-145)
--- NOTE | 2025-04-21 19:54 | NUR ---
SHIFT SUMMARY PT MENTATION IMPROVING SLOWLY THROUGHOUT THE DAY, AND RESTRAINTS REMOVED D/T PT MORE REDIRECTABLE AND LESS IMPULSIVE. ORIENTED X 3 AT TIMES, PERSON, PLACE, AND SITUATION WITH PROMPTING. 2 PA TO BSC TO URINATE. BED ALARM ON, CALL LIGHT IN REACH.
[2025-04-22 04:24] VITALS: BP 166/66
[2025-04-22 05:02] LABS: Albumin, Blood 3.0 g/dL (3.4-5.0); Anion Gap 7 mmol/L (3-11); Blood Urea Nitrogen 32 mg/dL (8-24); CO2, Blood 26 mmol/L (21-32); Calcium, Blood 10.5 mg/dL (8.5-10.1); Chloride, Blood 116 mmol/L (98-108); Creatinine, Blood 0.82 mg/dL (0.40-1.00); Glucose, Blood 110 mg/dL (70-99); Phosphorus, Blood 2.6 mg/dL (2.5-4.9); Potassium, Blood 3.4 mmol/L (3.5-5.5); Sodium, Blood 146 mmol/L (136-145)
--- NOTE | 2025-04-22 06:47 | NUR ---
PT WAS ALERT TO SELF ONLY AT THE BEGINING OF ETH SHIFT. SHE HAD NOTED HALLUCINATIONS, WAS A MAX 2 PERSON ASSIST TO BSC AND UNSTEADY ON HER FEET. AT THE END OF JESSICA SHIFT PT WAS A&OX3, ANSWERING QUESTIONS APPROPRIATELY AND EATING WITH ASISSTANCE. SHE WAS STRONGER WITH TRANSFERS TO BSC. PT SLEPT T/O THIS SHIFT.
[2025-04-22 07:19] VITALS: BP 136/78
[2025-04-22 11:50] VITALS: BP 153/64
[2025-04-22] MEDS ORDERED: Dextran/Hypromellose/Glycerin 15 DROP/ML BTL BOTHEYES PRN (14:40)
[2025-04-22 15:48] VITALS: BP 134/72
--- NOTE | 2025-04-22 18:36 | NUR ---
SHIFT SUMMARY PT IS A/OX3-4, CONFUSION AND FORGETFUL AT TIMES. BEDREST AT THIS TIME R/T WEAKNESS. ON TELE RUNNING AFLUTTER IN THE 80'S. EVALUATED BY SPEECH THERAPY THIS AFTERNOON FOR REPORTED DYSPHAGIA. MEDICATIONS TOLERATED WHOLE IN YOGURT. EXPECTED BARIUM SWALLOW TOMORROW. PT IS PLEASANT AND COOPERATIVE WITH CARE AND CALLS APPROPRAITELY USING THE CALL LIGHT.
[2025-04-22 19:57] VITALS: BP 114/56
[2025-04-23 00:40] VITALS: BP 150/73
[2025-04-23 04:48] VITALS: BP 143/71
[2025-04-23 05:53] LABS: Albumin, Blood 2.9 g/dL (3.4-5.0); Anion Gap 6 mmol/L (3-11); Blood Urea Nitrogen 37 mg/dL (8-24); CO2, Blood 25 mmol/L (21-32); Calcium, Blood 10.9 mg/dL (8.5-10.1); Chloride, Blood 120 mmol/L (98-108); Creatinine, Blood 0.96 mg/dL (0.40-1.00); Glucose, Blood 120 mg/dL (70-99); Phosphorus, Blood 2.1 mg/dL (2.5-4.9); Potassium, Blood 3.9 mmol/L (3.5-5.5); Sodium, Blood 147 mmol/L (136-145)
--- NOTE | 2025-04-23 05:53 | NUR ---
SHIFT SUMMARY A&OX2-3 THIS MORNING, DECREASED FROM X4 YESTERDAY. OCCASIONALLY CONFUSED TO TIME/DATE AND LOCATION. MENTATION CLEARS MORE IN MORNINGS. R WRIST IV PATENT. TELEMETRY: SR, V-PACED, PVC, RATE IN 90S. REMAINS 2-PERSON MAX ASSIST WITH GAIT BELT TO BSC. DID UTILIZE BEDPAN ONCE YESTERDAY EVENING 04/22. PT SEVERELY WEAK. DOES TAKE MEDS WHOLE WITH PUREE, REQUIRING LARGE TABLETS TO BE CRUSHED/DISSOLVED. TAKES NECTAR THICK LIQUIDS, NO STRAW. NIGHT PROVIDER SUGGESTS DAY PROVIDER BE NOTIFIED TO PLACE ORDERS FOR PT/OT. PENDING BARIUM SWALLOW WITH SPEECH THERAPY TODAY 04/23. SORES ON R LIP AND L NARIS IMPROVING WITH ANTIVIRAL PER EMAR.
[2025-04-23 07:39] VITALS: BP 138/72
[2025-04-23] MEDS ORDERED: Potassium Phos/Sodium Phos 250 MG PACK PO ONE (10:30)
[2025-04-23 15:44] VITALS: BP 162/60
--- NOTE | 2025-04-23 17:20 | NUR ---
SHIFT SUMMARY PATIENT ALERT AND ORIENTED X 3-4, MAKE NEEDS KNOWN. PATIENT PLEASANT AND RECEPTIVE DURING CARE. NO ACUTE CHANGE DURING THIS SHIFT. PATIENT MEDICATED PER EMAR. PATIENT UP TO CHAIR DURING MEALS. PATIENT IS ASPIRATION RISK, ON MINCED AND MOIST, MILDLY THICK/ CRUSHED MEDS WITH PUREE - NO STRAW. PT/OT ORDERS IN PLACED. REPOSITIONED THROUGHOUT SHIFT. BED LOCKED AND IN LOWEST POSITION. CALL LIGHT WITHIN REACH.
[2025-04-23 20:57] VITALS: BP 180/61
[2025-04-24] VITALS (7 sets, daily range): BP systolic 148–202; BP diastolic 54–68
[2025-04-24 05:27] LABS: Albumin, Blood 2.9 g/dL (3.4-5.0); Anion Gap 5 mmol/L (3-11); Blood Urea Nitrogen 33 mg/dL (8-24); CO2, Blood 25 mmol/L (21-32); Calcium, Blood 11.2 mg/dL (8.5-10.1); Chloride, Blood 121 mmol/L (98-108); Creatinine, Blood 0.99 mg/dL (0.40-1.00); Glucose, Blood 133 mg/dL (70-99); Phosphorus, Blood 2.5 mg/dL (2.5-4.9); Potassium, Blood 4.3 mmol/L (3.5-5.5); Sodium, Blood 147 mmol/L (136-145)
--- NOTE | 2025-04-24 06:43 | NUR ---
SHIFT SUMMARY A/Ox3, DISORIENTED TO TIME. ELEVATED SBP, OTHER VSS ON RA. PT APPEARED TO SLEEP FOR ABOUT 2-3 HOURS, MELATONIN GIVEN. UP TO COMMODE WITH 1P ASSIST/FWW; BODY POSITION QUEING NEEDED; PT TOLERATED WELL. NO COUGHING/CHOKING NOTED WITH PO INTAKE. TELE MONITORING IN PLACE; V-PACED RHYTHM, HR 60. SAFETY PRECAUTIONS IN PLACE.
--- NOTE | 2025-04-24 16:55 | NUR ---
SHIFT SUMMARY PATIENT ALERT AND ORIENTED 3-4. MAKE NEEDS KNOWN. PATIENT PLEASANT AND COOPERATIVE DURING CARE. PATIENT MEDICATED PER EMAR CRUSHED WITH APPLE SAUCE. PATIENT VOIDING AND DENIED PAIN. REPOSITIONED THROUGHOUT SHIFT. BED LOCKED AND IN LOWEST POSITION. CALL LIGHT WITHIN REACH.
[2025-04-25 00:47] VITALS: BP 182/69
[2025-04-25 00:49] VITALS: BP 171/64
--- NOTE | 2025-04-25 04:55 | NUR ---
SHIFT SUMMARY: PT IS AOX3. PT MEDICATED THROUGH OUT NIGHT. PT WOULD HIT CALL LIGHT BECAUSE SHE FELT LONELY AND WANTED SOMEONE TO STAY IN HER ROOM WITH HER. PT OFFERED EMOTIONAL SUPPORT. PT IS INCONT AND CHANGED NEEDED. NO ACUTE CHANGES THIS SHIFT.
[2025-04-25 05:23] VITALS: BP 184/69
[2025-04-25 05:27] LABS: Anion Gap 3.0 mmol/L (3-11); Blood Urea Nitrogen 31.0 mg/dL (8-24); CO2, Blood 30.0 mmol/L (21-32); Calcium, Blood 11.4 mg/dL (8.5-10.1); Chloride, Blood 120.0 mmol/L (98-108); Creatinine, Blood 0.93 mg/dL (0.40-1.00); Glucose, Blood 107.0 mg/dL (70-99); Potassium, Blood 3.9 mmol/L (3.5-5.5); Sodium, Blood 149.0 mmol/L (136-145)
[2025-04-25 07:37] VITALS: BP 175/62
[2025-04-25] MEDS ORDERED: HydrALAZINE HCl 20 MG / ML 1ML Vial IV PRN (10:05)
--- NOTE | 2025-04-25 11:19 | NUR ---
Per ARCELIA in Radiology patient can not be have MRI scan due to having a pacemaker. Dr. Humphreys notified in person. No change to care plan at this time.
[2025-04-25] MEDS ORDERED: Magnesium Hydroxide Conc 10 ML UDC PO PRN (11:25)
--- NOTE | 2025-04-25 14:47 | NUR ---
Spiritual Care Visit. Pt. is awaker and pleasant. Pt. welcomes my visit. Facilitate a lengthy life review. Listen with empathy and a calming presence. Pt. displays evidence of being encourgaed but grows increseingly somnolent. Prayed with the Pt. Pt. vervalized gratitude for the spiritual care visit and welcomes thischaplain to return.
[2025-04-25 15:54] VITALS: BP 168/52
--- NOTE | 2025-04-25 19:10 | NUR ---
SHIFT SUMMARY- HCP AND PSYCHIATRY ADJUSTED PATIENTS MEDICATIONS TO INCLUDE RESUMING SEROQUIL AND BENAZEPRIL AND TO USE HYDRALAZINE PRN TO HELP CONTROL HER BLOOD PRESSURE. PATIENT HAS NOT HAD A BM IN SINCE ADMIT. MOM STARTED TO DAY. NO BM YET.
[2025-04-25 19:31] VITALS: BP 161/59
[2025-04-26 04:25] VITALS: BP 160/65
[2025-04-26 04:55] LABS: BASOPHILS ABSOLUTE AUTO 0.05 K/mm3 (0.00-0.23); BASOPHILS PERCENT AUTO 1 % (0-2); EOSINOPHILS ABSOLUTE AUTO 0.08 K/mm3 (0.00-0.68); EOSINOPHILS PERCENT AUTO 1 % (0-6); Hematocrit 36.2 % (33.0-51.0); Hemoglobin 11.8 g/dL (11.5-16.0); IMMATURE GRAN ABSOLUTE AUTO 0.09 K/mm3 (0.00-0.10); IMMATURE GRAN PERCENT AUTO 1 % (0-1); LYMPHOCYTES ABSOLUTE AUTO 1.75 K/mm3 (0.84-5.20); LYMPHOCYTES PERCENT AUTO 19 % (21-46); MONOCYTES ABSOLUTE AUTO 0.54 K/mm3 (0.16-1.47); MONOCYTES PERCENT AUTO 6 % (4-13); Mean Corpuscular HGB Conc 32.6 g/dL (31.5-36.5); Mean Corpuscular Volume 96 fL (80-100); NEUTROPHILS ABSOLUTE AUTO 6.87 K/mm3 (1.96-9.15); NEUTROPHILS PERCENT AUTO 73 % (41-73); NRBC ABSOLUTE 0.00 K/mm3 (0.00-0.02); NRBC Auto 0.0 /100 WBC (0.0-0.2); Platelet Count 195 K/mm3 (150-400); RDW Coefficient Variation 14.5 % (11.7-14.2); RDW Standard Deviation 50.5 fL (35.1-46.3)
[2025-04-26 05:34] LABS: Anion Gap 3.0 mmol/L (3-11); Blood Urea Nitrogen 36.0 mg/dL (8-24); CO2, Blood 31.0 mmol/L (21-32); Calcium, Blood 11.5 mg/dL (8.5-10.1); Chloride, Blood 118.0 mmol/L (98-108); Creatinine, Blood 1.02 mg/dL (0.40-1.00); Glucose, Blood 114.0 mg/dL (70-99); Potassium, Blood 4.3 mmol/L (3.5-5.5); Sodium, Blood 148.0 mmol/L (136-145)
[2025-04-26 06:11] LABS: ALDOSTERONE 5.8 ng/dL; RENIN ACTIVITY <0.1 ng/mL/hr
[2025-04-26 07:41] VITALS: BP 171/65
[2025-04-26 16:05] VITALS: BP 121/67
--- NOTE | 2025-04-26 18:06 | NUR ---
SHIFT SUMMARY- PATIENT CONTINUES TO WORK TOWARD SWALLOWING GOALS AND DISCHARGE. NEW INTAKE PRECAUTIONS ARE ON THE GREEN SHEET ON THE BOARD. PATIENT WILL HAVE A NEW IV PLACED BY THIS RN BEFORE SHE LEAVES TODAY THE CURRENT ONE SEEMS TO BE LEAKING. PATIENT CONTINUES TO BE SLIGHTLY CONSTIPATED BUT ROUTINE MOM IS HELPING. 2 BMS TODAY.
[2025-04-26 19:26] VITALS: BP 129/44
--- NOTE | 2025-04-26 23:34 | NUR ---
REPORT ON PT GIVEN TO KASI GORDON FOR TRANSFER OF CARE @ [id number].
[2025-04-27 04:44] LABS: BASOPHILS ABSOLUTE AUTO 0.07 K/mm3 (0.00-0.23); BASOPHILS PERCENT AUTO 1 % (0-2); EOSINOPHILS ABSOLUTE AUTO 0.10 K/mm3 (0.00-0.68); EOSINOPHILS PERCENT AUTO 1 % (0-6); Hematocrit 31.4 % (33.0-51.0); Hemoglobin 10.3 g/dL (11.5-16.0); IMMATURE GRAN ABSOLUTE AUTO 0.07 K/mm3 (0.00-0.10); IMMATURE GRAN PERCENT AUTO 1 % (0-1); LYMPHOCYTES ABSOLUTE AUTO 2.03 K/mm3 (0.84-5.20); LYMPHOCYTES PERCENT AUTO 23 % (21-46); MONOCYTES ABSOLUTE AUTO 0.49 K/mm3 (0.16-1.47); MONOCYTES PERCENT AUTO 6 % (4-13); Mean Corpuscular HGB Conc 32.8 g/dL (31.5-36.5); Mean Corpuscular Volume 95 fL (80-100); NEUTROPHILS ABSOLUTE AUTO 5.95 K/mm3 (1.96-9.15); NEUTROPHILS PERCENT AUTO 68 % (41-73); NRBC ABSOLUTE 0.00 K/mm3 (0.00-0.02); NRBC Auto 0.0 /100 WBC (0.0-0.2); Platelet Count 175 K/mm3 (150-400); RDW Coefficient Variation 14.6 % (11.7-14.2); RDW Standard Deviation 50.7 fL (35.1-46.3)
--- NOTE | 2025-04-27 04:56 | NUR ---
PT IS ALERT AND ORIENTED TIMES 2-3. PT IS FULL CODE. PT ADMITTED FOR TOXIC METABOLIC ENCEPHALOPATHY. PT HAS D5 RUNNING AT 100/HR.. PT HAS LEFT AC IV THAT FLUSHES. PT IS 1 PERSON ASSIST WITH GAIT BELT. TO TOILET. PT TAKES MEDICATION WHOLE WITH WATER. PT IS ON ROOM AIR AND TAKES MEDICATION CRUSHED IN APPLESAUCE. PT HAS LOW NUMBER DIASTALIC HX IN MID 40 S. PT IS COOPERATIVE WITH CARE AND ABLE TO MAKE NEEDS KNOWN. BED IS AT LOW POSITION, RAILS TIMES TWO, AND CALL LIGHT WITHIN REACH.
[2025-04-27 05:23] VITALS: BP 113/59
[2025-04-27 05:25] LABS: Blood Urea Nitrogen 34.0 mg/dL (8-24); CO2, Blood 27.0 mmol/L (21-32); Calcium, Blood 10.5 mg/dL (8.5-10.1); Chloride, Blood 107.0 mmol/L (98-108); Creatinine, Blood 0.87 mg/dL (0.40-1.00); Glucose, Blood 120.0 mg/dL (70-99); Potassium, Blood 4.6 mmol/L (3.5-5.5)
[2025-04-27 05:27] LABS: Anion Gap 6.0 mmol/L (3-11); Sodium, Blood 135.0 mmol/L (136-145)
[2025-04-27 07:29] VITALS: BP 125/63
--- NOTE | 2025-04-27 13:12 | NUR ---
CALLED AND GAVE REPORT TO NURSE NASH AT [facility]
--- NOTE | 2025-04-27 14:48 | NUR ---
discharged via wheelchair transport with [facility]
--- NOTE | 2025-04-27 17:41 | NUR ---
DISCHARGE SUMMARY 1420 DISCHARGE INSTRUCTIONS REVIEWED. VASCULAR DEVICE REMOVED AND INTACT. LEFT IN WHEELCHAIR WITH MEDICAL RIDE, TAKEN TO SNF. LEFT WITH BELONGINGS AND IN A STABLE CONDITION.
[2025-04-27] MEDS ORDERED: BISA10S PR (17:53)
[2025-04-27] MEDS ORDERED: DOCU100 PO (17:53)
[2025-04-27] MEDS ORDERED: MELATONIN5 M1 PO (17:54)
[2025-04-27] MEDS ORDERED: POTCHL20ER PO (17:55)
[2025-04-27] MEDS ORDERED: SENNA LAXATIVE8.6 MG PO (17:56)
== END 2025-04-27 15:04 | DRG 682 ==
LOC: ER 18:36 → MEDS 18:37
PROVIDERS: Emergency Medicine; Family Medicine; Internal Medicine; Internal Medicine Endocrinology, Diabetes & Metabolism; ADMIT Internal Medicine
DX: N17.9 Acute kidney failure, unspecified (principal); G92.8 Other toxic encephalopathy; E87.1 Hypo-osmolality and hyponatremia; N39.0 Urinary tract infection, site not specified; F23 Brief psychotic disorder; E87.0 Hyperosmolality and hypernatremia; I48.91 Unspecified atrial fibrillation; E03.9 Hypothyroidism, unspecified; E87.8 Other disorders of electrolyte and fluid balance, not elsewhere classified; E87.6 Hypokalemia; R45.1 Restlessness and agitation; F31.9 Bipolar disorder, unspecified; B96.20 Unspecified Escherichia coli [E. coli] as the cause of diseases classified elsewhere; E83.52 Hypercalcemia; B00.1 Herpesviral vesicular dermatitis; N18.30 Chronic kidney disease, stage 3 unspecified; R13.10 Dysphagia, unspecified; D63.1 Anemia in chronic kidney disease; I12.9 Hypertensive chronic kidney disease with stage 1 through stage 4 chronic kidney disease, or unspecified chronic kidney disease; Z60.2 Problems related to living alone; E86.0 Dehydration; Z88.2 Allergy status to sulfonamides; Z79.01 Long term (current) use of anticoagulants; Z79.899 Other long term (current) drug therapy; Z79.890 Hormone replacement therapy
CPT/HCPCS: 36415; 51701; 70450; 71045; 74230; 80048; 80053; 80069; 80320; 81001; 82088; 82607; 82728; 82746; 83540; 83550; 83605; 83735; 83970; 84244; 84443; 85025; 85045; 87077; 87086; 87186; 92526; 92610; 92611; 93005; 93010; 94762; 96365; 96366; 96368; 97110; 97116; 97162; 97166; 97530; 97535; 99285-25; A9270; G0378; J0696; J1630; J3475; J3480; J7030; J7050; J7070; J7120

== ENCOUNTER → 2025-05-14 | Outpatient (CLI) | payer MEDICARE ==
[~2025-05-14] MED LIST changes: +AMLO5 PO; +BENAZEPRIL HCL40 M1 PO; +BISA10S PR; +DOCU100 PO; +ELIQUIS5 M2 PO; +EUTHYROX88 MCG PO; +FLUT.05NI; +HYDCHL12.5 PO; +MELATONIN5 M1 PO; +METOPROLOL SUCC25 MG PO; +POTCHL20ER PO; +SENNA LAXATIVE8.6 MG PO; +SPIR25 PO; +Seroquel Xr50 MG PO; +VALACYCLOVIR1000 MG; +Vitamin B Comple1 EA PO; +Vitamin D1000 UNI1 PO; +ZYRTEC10 M2 PO
== END | disposition home or self-care (01) ==
LOC: LAB SHORT 12:05 → LAB 12:05
DX: N39.0 Urinary tract infection, site not specified (principal)
CPT/HCPCS: 87086

== ENCOUNTER → 2025-06-03 | Outpatient (CLI) | payer MEDICARE | END | disposition home or self-care (01) | LOC: LAB SHORT 19:48 → LAB 19:48 | DX: N39.0 Urinary tract infection, site not specified (principal); M81.0 Age-related osteoporosis without current pathological fracture; N28.9 Disorder of kidney and ureter, unspecified; D47.2 Monoclonal gammopathy; E21.0 Primary hyperparathyroidism; E55.9 Vitamin D deficiency, unspecified | CPT/HCPCS: 36415; 80048; 80069; 82306; 82784; 83521; 83970; 84155; 84165; 85025; 86334; 87086 ==